=== PATIENT | female | born 1955 ===

== ENCOUNTER 2019-05-27 15:05 | Outpatient (CLI) | payer MEDICARE, OTHER ==
[2019-05-27] MEDS ORDERED: Sodium Chloride 0.9% 15 ML NEB ONE (16:36)
[2019-05-27] MEDS ORDERED: Lidocaine 2% PF 100 mg/5 ml Syringe ONE (16:36)
--- NOTE | 2019-05-27 23:28 | HP ---
HISTORY OF PRESENT ILLNESS: Ms. Krystal Howard is a very pleasant 63-year-old, who presents to the [facility] for evaluation of an ulceration of the left anterior lower leg. The patient states that the ulceration of her left anterior lower leg developed subsequent to a staphylococcal infection in November of this year. The patient states that she has been treated for the ulceration at a [facility] in [place], [place]. She states that treatment for her ulceration included debridement as well as antibiotics. The patient states that at a followup visit with her primary care provider, Shira Gomez RN, FOLDING MACHINE OPERATOR, she was referred to the [facility] for further evaluation and treatment. The patient today reports an allergy to Medihoney. PAST MEDICAL HISTORY: 1. COPD. 2. Congestive heart failure. 3. Obstructive sleep apnea. 4. History of hypertension. PAST SURGICAL HISTORY: 1. Cholecystectomy. 2. Left knee surgery x4. 3. Tonsillectomy. MEDICATIONS: 1. Celecoxib. 2. Aspirin 325 mg. 3. Spiriva. 4. Biotin. 5. Vitamin C. 6. Multivitamin. 7. Cephalexin. 8. Tramadol. ALLERGIES: ARIPIPRAZOLE, BUPROPION, CODEINE, MALTODEXTRIN. SOCIAL HISTORY: Social history is significant for tobacco use of up to [id number]-half packs of cigarettes per day for 35 years. The patient admits to the heavy consumption of alcohol in the past. FAMILY HISTORY: Family history is significant for coronary artery disease. The patient states that her mother and father were both diagnosed with coronary artery disease. Family history is also significant for diabetes mellitus. The patient states that a grandfather and uncle and aunt were all diagnosed with diabetes mellitus. PHYSICAL EXAMINATION: VITAL SIGNS: Temperature 97.7, pulse 72, respirations 25, blood pressure 145/69. GENERAL: A 63-year-old female, lying on table in examination room, in no acute distress. HEENT: Normocephalic, atraumatic. NECK: No nuchal rigidity. CHEST: Clear to auscultation. CARDIOVASCULAR: Regular rate and rhythm. ABDOMEN: Soft. EXTREMITIES: An ulceration of the left anterior lower leg is present, which measures approximately 2.7 x 3.8 cm. Granulation tissue is visible within the wound margins. No purulent drainage is associated with the wound. Erythema of the skin surrounding the wound is present, which appears to be secondary to stasis changes versus resolving cellulitis. No maceration of the skin of the periwound is noted. A posterior tibial pulse is easily palpable on the left. [id number] edema of the left foot and lower leg is present on exam today. NEUROLOGIC: Grossly nonfocal. ASSESSMENT AND PLAN: 1. Chronic venous hypertension with ulcer and inflammation. Dressing changes of Hydrofera Blue will be initiated today. These dressing changes are to be performed 3 times per week after cleansing and irrigation with the assistance of Home Health. Kerlix and Amilcar bandage will be utilized as secondary dressings. The patient has been reminded to continue Keflex as previously prescribed. I will see Ms. Howard again in 2 to 4 weeks. The patient understands and is in agreement with the preceding treatment plan. At the time of the patient's followup visit, if the dimensions of the wound have failed to decrease significantly, consideration will be given to treatment with Santyl. 2. Chronic obstructive pulmonary disease. 3. Congestive heart failure. 4. Obstructive sleep apnea. 5. History of hypertension. Job ID: [id number]
== END 2019-05-27 15:06 | disposition home or self-care (01) ==
LOC: WCC 15:05
PROVIDERS: ATTEND Family Medicine
DX: I87.332 Chronic venous hypertension (idiopathic) with ulcer and inflammation of left lower extremity (principal); L97.929 Non-pressure chronic ulcer of unspecified part of left lower leg with unspecified severity; I11.0 Hypertensive heart disease with heart failure; I50.9 Heart failure, unspecified; G47.33 Obstructive sleep apnea (adult) (pediatric); J44.9 Chronic obstructive pulmonary disease, unspecified
CPT/HCPCS: 97602; 99203; A4218; G0463; J2001

== ENCOUNTER 2019-06-24 11:20 | Outpatient (CLI) | payer MEDICARE, OTHER ==
--- NOTE | 2019-06-24 11:36 | PRG ---
DATE OF SERVICE: 06/24/2019 HISTORY: Ms. Krystal Howard is a very pleasant 63-year-old, who presents to the wound center for evaluation of an ulceration of the left anterior lower leg. The patient previously stated that the ulceration of her left anterior lower leg developed subsequent to a staphylococcal infection in November of this year. The patient stated previously that she had been treated for the ulceration at a wound care center in [place], [place]. She stated that treatment for her ulceration included debridement as well as antibiotics. The patient stated that at a followup visit with her primary care provider, Shira Gomez RN, AUTOMATIC COIL MACHINE OPERATOR, she was referred to the [facility] for further evaluation and treatment. At the time of the patient's initial presentation to the wound center, the patient reported an allergy to Medihoney. After being seen in the wound center, dressing changes of Hydrofera BLUE were initiated. These dressing changes have been performed 3 times per week after cleansing and irrigation with the assistance of Home Health. PHYSICAL EXAMINATION: VITAL SIGNS: Temperature 98.5, pulse90, respirations 24, blood pressure 184/77. EXTREMITIES: An ulceration of the left anterior lower leg is present, which measures approximately 3.5 x 2.2 cm. The dimensions of the wound at the time of the patient's visit on 05/27/2019 were approximately 2.7 x 3.8 cm. Granulation tissue is present within the wound margins. No purulent drainage is associated with the wound. Erythema of the skin surrounding the wound is present, which appears to be secondary to stasis changes. No maceration of the skin of the periwound is noted. A posterior tibial pulse is easily palpable on the left. No significant edema of the left foot or lower leg is present on exam today. ASSESSMENT AND PLAN: 1. Chronic venous hypertension with ulcer and inflammation. Dressing changes of Hydrofera BLUE will be continued 3 times per week after cleansing and irrigation with the assistance of Home Health. I will see Ms. Howard again in 4 weeks. 2. Chronic obstructive pulmonary disease. 3. Congestive heart failure. 4. Obstructive sleep apnea. 5. Hypertension. Job ID: [id number]
[2019-06-24] MEDS ORDERED: Sodium Chloride 0.9% 15 ML NEB ONE (15:00)
[2019-06-24] MEDS ORDERED: Lidocaine 2% PF 100 mg/5 ml Syringe ONE (15:00)
== END 2019-06-24 11:21 | disposition home or self-care (01) ==
LOC: WCC 11:20
PROVIDERS: ATTEND Family Medicine
DX: I87.332 Chronic venous hypertension (idiopathic) with ulcer and inflammation of left lower extremity (principal); B95.8 Unspecified staphylococcus as the cause of diseases classified elsewhere; I11.0 Hypertensive heart disease with heart failure; I50.9 Heart failure, unspecified; J44.9 Chronic obstructive pulmonary disease, unspecified; G47.33 Obstructive sleep apnea (adult) (pediatric)
CPT/HCPCS: 97602

== ENCOUNTER 2019-07-22 10:07 | Outpatient (CLI) | payer MEDICARE, OTHER ==
--- NOTE | 2019-07-22 11:00 | PRG ---
DATE OF SERVICE: 07/22/2019 HISTORY: Ms. Krystal Howard is a very pleasant 63-year-old who presents to the Wound Center for evaluation of an ulceration of the left anterior lower leg. The patient previously stated that the ulceration of her left anterior lower leg developed subsequent to a staphylococcal infection in November of this year. The patient previously stated that she had been treated for the ulceration at the Wound Care Center in [place], [place]. She stated that treatment for her ulceration included debridement as well as antibiotics. The patient stated that at a followup visit with her primary care provider, Shira Gomez RN, INSIDE SALES REPRESENTATIVE, she was referred to the [facility] for further evaluation and treatment. At the time of the patient's initial presentation to the Wound Center, the patient reported an allergy to Medihoney. After being seen in the Wound Center, dressing changes of Hydrofera BLUE were initiated. These dressing changes have been performed 3 times per week after cleansing and irrigation with the assistance of Home Health. PHYSICAL EXAMINATION: VITAL SIGNS: Temperature 99.0, pulse 87, respirations 24, blood pressure 159/71. EXTREMITIES: An ulceration of the left anterior lower leg is present, which measures approximately 2.0 x 1.7 cm. The dimensions of the wound at the time of the patient's visit on 06/24/2019 were approximately 3.5 x 2.2 cm. Granulation tissue is present within the wound margins. No purulent drainage is associated with the wound. Erythema of the skin surrounding the wound is present, which appears to be secondary to stasis changes. No maceration of the skin of the periwound is noted. No significant edema of the left foot or lower leg is appreciated on exam today. ASSESSMENT AND PLAN: 1. Chronic venous hypertension with ulcer and inflammation. Dressing changes of Hydrofera BLUE will be continued 3 times per week after cleansing and irrigation with the assistance of Home Health. I have asked the patient to return to clinic in 4 weeks. 2. Chronic obstructive pulmonary disease. 3. Congestive heart failure. 4. Obstructive sleep apnea. 5. Hypertension. Job ID: [id number]
[2019-07-22] MEDS ORDERED: Sodium Chloride 0.9% 15 ML NEB ONE (15:19)
== END 2019-07-22 10:08 | disposition home or self-care (01) ==
LOC: WCC 10:07
PROVIDERS: ATTEND Family Medicine
DX: I87.332 Chronic venous hypertension (idiopathic) with ulcer and inflammation of left lower extremity (principal); L97.929 Non-pressure chronic ulcer of unspecified part of left lower leg with unspecified severity; J44.9 Chronic obstructive pulmonary disease, unspecified; G47.33 Obstructive sleep apnea (adult) (pediatric); I11.0 Hypertensive heart disease with heart failure
CPT/HCPCS: A4218

== ENCOUNTER 2021-09-20 15:59 | Inpatient (IN) | payer MEDICARE, OTHER ==
[2021-09-20 16:15] LABS: #Eosinphils 0.3 thou/uL (0.0-0.7); #Lymphocytes 0.5 thou/uL (1.20-3.40); #Monocytes 0.9 thou/uL (0.11-0.59); #Neutrophils 7.2 thou/uL (1.40-6.50); %Basophils 0.3 % (0.0-1.0); %Eosinophils 3.2 % (0.0-10.0); %Lymphocytes 5.8 % (21.0-51.0); %Monocytes 10.5 % (0.0-10.0); %Neutrophils 80.2 % (42.0-75.0); Hemoglobin 14.5 g/dL (12.0-16.0); Mean Corpuscular HGB CONC 31.9 g/dL (32.0-36.0); Mean Corpuscular Hemoglobin 29.2 pg (27.0-31.0); Mean Corpuscular Volume 91.4 fL (78.0-98.0); Mean Platelet Volume 8.8 fL (7.4-10.4); Platelet Count 74 thou/uL (130-400); RBC Distribution Width 13.5 % (11.5-14.5); Red Blood Cell (RBC) Count 4.95 mill/uL (4.20-5.40); White Blood Cell (WBC) Count 8.9 thou/uL (4.8-10.8)
[2021-09-20 16:22] LABS: INR-International Normal Ratio 1.5; Prothrombin Time 18.1 sec (12.0-14.7)
[2021-09-20 16:25] LABS: PTT 59.9 sec (22.9-36.1)
[2021-09-20 16:28] LABS: Platelet Morphology Comment Appears Decreased; RBC Morphology Normal
[2021-09-20 16:36] LABS: ALT (SGPT) 51 U/L (8-55); AST (SGOT) 258 U/L (5-34); Albumin 3.4 g/dL (3.4-4.8); Alkaline Phosphatase 866 U/L (40-110); Anion Gap 22 mmol/L (10-20); BUN (Urea Nitrogen) 62 mg/dL (9.8-20.1); Bilirubin, Total 3.6 mg/dL (0.2-1.2); Calc. Creatinine Clearance 0 mL/min (70-130); Calcium 10.3 mg/dL (7.8-10.44); Carbon Dioxide 13 mmol/L (23-31); Chloride 99 mmol/L (98-107); Globulin 3.5 g/dL (2.4-3.5); Glucose 88 mg/dL (80-115); Potassium 5.4 mmol/L (3.5-5.1); Protein, Total 6.9 g/dL (5.8-8.1); Sodium 129 mmol/L (136-145)
[2021-09-20 18:20] LABS: Acetaminophen Less than 6.0 mcg/mL (10.0-30.0); Alcohol Less than 10 mg/dL (Less than 10); CK (CPK) 153 U/L (29-168); Salicylate Less than 8.0 mg/dL (15.0-30.0)
[2021-09-20] MEDS ORDERED: Bisacodyl 5 MG TAB PO PRN (19:45)
[2021-09-20] MEDS ORDERED: hydrALAZINE 20 MG/ML VIAL SLOW IVP PRN (19:47)
[2021-09-20 22:38] VITALS: BMI 37.5
[2021-09-20] MEDS: Heparin 5,000 UNITS/ML VIAL SC SCH (23:42)
[2021-09-20] MEDS: Famotidine 20 MG TAB PO SCH (23:43)
[2021-09-20] MEDS: Nicotine 14 MG PATCH TD SCH (23:46)
[2021-09-21 01:38] LABS: Protein, Urine Random Quant 53 mg/dL (1-14); Sodium, Urine Less than 20 mmol/L (Not Available); Urea Nitrogen, Random Urine 572 mg/dl
[2021-09-21] MEDS: Sodium Bicarbonate 150 MEQ in Dextrose 5% in Water 1,000 ML IV SCH ×2 (02:33→12:21)
[2021-09-21] MEDS: HYDROcodone/Acetaminophen 5/325 mg Tablet PO PRN ×2 (02:46→09:02)
[2021-09-21] MEDS: Ondansetron PF 4 MG/2 ML Vial IVP PRN ×2 (03:01→13:05)
[2021-09-21 05:35] LABS: ALT (SGPT) 52 U/L (8-55); AST (SGOT) 265 U/L (5-34); Alkaline Phosphatase 882 U/L (40-110); Anion Gap 20 mmol/L (10-20); BUN (Urea Nitrogen) 59 mg/dL (9.8-20.1); Bilirubin, Total 3.5 mg/dL (0.2-1.2); Calc. Creatinine Clearance 34 mL/min (70-130); Calcium 9.7 mg/dL (7.8-10.44); Carbon Dioxide 17 mmol/L (23-31); Chloride 98 mmol/L (98-107); Globulin 3.3 g/dL (2.4-3.5); Glucose 121 mg/dL (80-115); Potassium 4.7 mmol/L (3.5-5.1); Protein, Total 6.3 g/dL (5.8-8.1); Sodium 130 mmol/L (136-145)
[2021-09-21 06:52] LABS: #Eosinphils 0.3 thou/uL (0.0-0.7); #Lymphocytes 0.4 thou/uL (1.20-3.40); #Monocytes 0.7 thou/uL (0.11-0.59); #Neutrophils 5.6 thou/uL (1.40-6.50); %Basophils 0.4 % (0.0-1.0); %Eosinophils 4.4 % (0.0-10.0); %Lymphocytes 5.1 % (21.0-51.0); %Monocytes 10.5 % (0.0-10.0); %Neutrophils 79.6 % (42.0-75.0); Hemoglobin 13.2 g/dL (12.0-16.0); Mean Corpuscular HGB CONC 32.3 g/dL (32.0-36.0); Mean Corpuscular Hemoglobin 29.2 pg (27.0-31.0); Mean Corpuscular Volume 90.6 fL (78.0-98.0); Mean Platelet Volume 9.1 fL (7.4-10.4); Platelet Count 64 thou/uL (130-400); RBC Distribution Width 13.3 % (11.5-14.5); Red Blood Cell (RBC) Count 4.51 mill/uL (4.20-5.40); White Blood Cell (WBC) Count 7.1 thou/uL (4.8-10.8)
[2021-09-21] MEDS: Famotidine 20 MG TAB PO SCH (08:20)
[2021-09-21] MEDS: Heparin 5,000 UNITS/ML VIAL SC SCH (08:21)
[2021-09-21] MEDS: Zinc Sulfate 220 MG CAP PO SCH (09:04)
[2021-09-21 12:07] LABS: SARS-CoV-2 PCR by NAA DETECTED (NotDetected)
[2021-09-21] MEDS: Morphine 4 MG/ML VIAL SLOW IVP PRN (13:07)
[2021-09-21] MEDS ORDERED: Sodium Bicarbonate 150 MEQ in Dextrose 5% in Water 1,000 ML IV SCH (13:15)
[2021-09-21] MEDS ORDERED: Famotidine 20 MG TAB PO SCH (21:00)
[2021-09-21] MEDS: Albuterol 200 PUFF (6.7GM INHALER) INH SCH (21:42)
[2021-09-21] MEDS: Nicotine 14 MG PATCH TD SCH (21:42)
[2021-09-21] MEDS ORDERED: Sodium Chloride 0.9% 1,000 ML IV SCH (22:15)
[2021-09-22] MEDS ORDERED: Sodium Chloride 0.9% 1,000 ML IV SCH (00:30)
[2021-09-22] MEDS ORDERED: Midodrine HCl 5 MG TAB PO SCH ×2 (06:15→10:23)
[2021-09-22] MEDS: Albuterol 200 PUFF (6.7GM INHALER) INH SCH ×3 (08:00→18:55)
[2021-09-22] MEDS ORDERED: Norepinephrine 8 MG/0.9% NS 250 ML IVPB SCH (10:15)
[2021-09-22] MEDS ORDERED: Albumin 25% 25 GM/100 ML BOT IVPB SCH (10:27)
[2021-09-22] MEDS ORDERED: Albumin 25% 100 ML ONE ×2 (10:28→10:30)
[2021-09-22 11:03] LABS: Base Excess (BEa) 4.4 mEq/L (-2.0 to +3.0); CO2 Tension 55.3 mmHg (35.0-45.0); Calcium, Ionized (arterial) 1.04 mmol/L (1.12-1.30); Carboxyhemoglobin (COHb) 0.6 gm% (0.0-3.0); Hemoglobin (Hb) 13.3 g/dL (12.0-16.0); Potassium - ABG Lab 4.57 mmol/L (3.70-5.30); pH, Arterial 7.37 (7.35-7.45)
[2021-09-22 11:23] LABS: O2 Tension (PaO2), arterial 32.1 mmHg (> 80.0)
[2021-09-22 11:24] LABS: ALV-art Gradient 98.415 mmHg (0-20); Puncture Site RBA
[2021-09-22] MEDS: Famotidine 20 MG TAB PO SCH (11:30)
[2021-09-22] MEDS: Zinc Sulfate 220 MG CAP PO SCH (11:31)
[2021-09-22 11:48] LABS: Hemoglobin 12.5 g/dL (12.0-16.0); Mean Corpuscular HGB CONC 33.3 g/dL (32.0-36.0); Mean Corpuscular Hemoglobin 30.5 pg (27.0-31.0); Mean Corpuscular Volume 91.5 fL (78.0-98.0); Platelet Count 61 thou/uL (130-400); RBC Distribution Width 13.5 % (11.5-14.5); White Blood Cell (WBC) Count 6.2 thou/uL (4.8-10.8)
[2021-09-22 12:16] LABS: Phosphorus 3.7 mg/dL (2.3-4.7)
[2021-09-22 12:19] LABS: ALT (SGPT) 154 U/L (8-55); AST (SGOT) 1243 U/L (5-34); Albumin 3.4 g/dL (3.4-4.8); Alkaline Phosphatase 930 U/L (40-110); Anion Gap 24 mmol/L (10-20); BUN (Urea Nitrogen) 61 mg/dL (9.8-20.1); Bilirubin, Total 3.3 mg/dL (0.2-1.2); Calc. Creatinine Clearance 26 mL/min (70-130); Calcium 8.3 mg/dL (7.8-10.44); Carbon Dioxide 22 mmol/L (23-31); Chloride 91 mmol/L (98-107); Globulin 2.7 g/dL (2.4-3.5); Glucose 88 mg/dL (80-115); Magnesium 1.7 mg/dL (1.6-2.6); Potassium 4.7 mmol/L (3.5-5.1); Protein, Total 6.1 g/dL (5.8-8.1); Sodium 132 mmol/L (136-145)
[2021-09-22] MEDS ORDERED: Sodium Chloride 0.9% 500 ML IV SCH (13:30)
[2021-09-22] MEDS: Albumin 25% 25 GM/100 ML BOT IVPB SCH ×3 (14:27→23:39)
[2021-09-22] MEDS: Midodrine HCl 5 MG TAB PO SCH ×2 (14:27→19:44)
[2021-09-22] MEDS: Norepinephrine 8 MG/0.9% NS 250 ML IVPB SCH (15:36)
[2021-09-22] MEDS ORDERED: Acetaminophen 650 MG Suppository PR SCH (21:30)
[2021-09-22] MEDS: Ondansetron PF 4 MG/2 ML Vial IVP PRN (21:47)
[2021-09-22] MEDS: Nicotine 14 MG PATCH TD SCH (22:02)
[2021-09-23] MEDS: Morphine 4 MG/ML VIAL SLOW IVP PRN ×3 (03:49→13:57)
[2021-09-23] MEDS: Ondansetron PF 4 MG/2 ML Vial IVP PRN ×2 (03:50→13:57)
[2021-09-23 04:39] LABS: ALT (SGPT) 149 U/L (8-55); AST (SGOT) 1255 U/L (5-34); Albumin 3.5 g/dL (3.4-4.8); Alkaline Phosphatase 774 U/L (40-110); Anion Gap 15 mmol/L (10-20); BUN (Urea Nitrogen) 63 mg/dL (9.8-20.1); Bilirubin, Total 4.4 mg/dL (0.2-1.2); Calc. Creatinine Clearance 22 mL/min (70-130); Calcium 8.3 mg/dL (7.8-10.44); Carbon Dioxide 30 mmol/L (23-31); Chloride 93 mmol/L (98-107); Globulin 2.4 g/dL (2.4-3.5); Glucose 76 mg/dL (80-115); Hemoglobin 11.3 g/dL (12.0-16.0); Mean Corpuscular HGB CONC 32.5 g/dL (32.0-36.0); Mean Corpuscular Hemoglobin 29.9 pg (27.0-31.0); Mean Corpuscular Volume 92.1 fL (78.0-98.0); Mean Platelet Volume 9.6 fL (7.4-10.4); Platelet Count 80 thou/uL (130-400); Potassium 4.4 mmol/L (3.5-5.1); Protein, Total 5.9 g/dL (5.8-8.1); RBC Distribution Width 13.5 % (11.5-14.5); Red Blood Cell (RBC) Count 3.78 mill/uL (4.20-5.40); Sodium 134 mmol/L (136-145); White Blood Cell (WBC) Count 7.3 thou/uL (4.8-10.8)
[2021-09-23 04:48] LABS: Free T4 (Free Thyroxine) 1.31 ng/dL (0.70-1.48)
[2021-09-23] MEDS: Albumin 25% 25 GM/100 ML BOT IVPB SCH ×3 (06:19→13:59)
[2021-09-23] MEDS: Midodrine HCl 5 MG TAB PO SCH ×4 (06:20→20:08)
[2021-09-23] MEDS: Albuterol 200 PUFF (6.7GM INHALER) INH SCH ×3 (08:05→19:18)
[2021-09-23] MEDS: Zinc Sulfate 220 MG CAP PO SCH (09:46)
[2021-09-23] MEDS: Famotidine 20 MG TAB PO SCH (09:46)
[2021-09-23] MEDS: Sodium Chloride 0.9% 1,000 ML IV SCH ×2 (11:55→20:05)
[2021-09-23] MEDS ORDERED: Hydrocortisone Sod Succ/PF 250 mg/2 ml Vial SLOW IVP SCH (13:51)
[2021-09-23] MEDS: Nystatin Powder 15 GM BOT TOP SCH (20:06)
[2021-09-23] MEDS: Nicotine 14 MG PATCH TD SCH (20:06)
[2021-09-23] MEDS: Norepinephrine 8 MG/0.9% NS 250 ML IVPB SCH (20:56)
[2021-09-24] MEDS: Midodrine HCl 5 MG TAB PO SCH ×3 (05:51→20:49)
[2021-09-24] MEDS: Sodium Chloride 0.9% 1,000 ML IV SCH (05:51)
[2021-09-24 07:04] LABS: Hemoglobin 12.4 g/dL (12.0-16.0); Mean Corpuscular HGB CONC 31.5 g/dL (32.0-36.0); Mean Corpuscular Hemoglobin 29.7 pg (27.0-31.0); Mean Corpuscular Volume 94.3 fL (78.0-98.0); Mean Platelet Volume 7.9 fL (7.4-10.4); Platelet Count 99 thou/uL (130-400); RBC Distribution Width 14.1 % (11.5-14.5); Red Blood Cell (RBC) Count 4.16 mill/uL (4.20-5.40); White Blood Cell (WBC) Count 14.2 thou/uL (4.8-10.8)
[2021-09-24] MEDS: Albuterol 200 PUFF (6.7GM INHALER) INH SCH ×3 (08:09→20:51)
[2021-09-24 08:41] LABS: Albumin 3.5 g/dL (3.4-4.8)
[2021-09-24 08:42] LABS: Chloride 96 mmol/L (98-107); Potassium 5.1 mmol/L (3.5-5.1); Sodium 135 mmol/L (136-145)
[2021-09-24 08:43] LABS: Calcium 8.3 mg/dL (7.8-10.44); Globulin 2.5 g/dL (2.4-3.5); Glucose 99 mg/dL (80-115)
[2021-09-24 08:45] LABS: Anion Gap 31 mmol/L (10-20); Bilirubin, Total 4.4 mg/dL (0.2-1.2); Carbon Dioxide 13 mmol/L (23-31)
[2021-09-24 08:46] LABS: Alkaline Phosphatase 863 U/L (40-110)
[2021-09-24 08:47] LABS: BUN (Urea Nitrogen) 71 mg/dL (9.8-20.1); Calc. Creatinine Clearance 18 mL/min (70-130)
[2021-09-24 08:48] LABS: AST (SGOT) 1470 U/L (5-34)
[2021-09-24 08:49] LABS: ALT (SGPT) 181 U/L (8-55)
[2021-09-24] MEDS: Norepinephrine 8 MG/0.9% NS 250 ML IVPB SCH ×2 (10:08→20:49)
[2021-09-24] MEDS: Famotidine 20 MG TAB PO SCH (10:08)
[2021-09-24] MEDS: Zinc Sulfate 220 MG CAP PO SCH (10:08)
[2021-09-24] MEDS: Nystatin Powder 15 GM BOT TOP SCH ×2 (10:09→20:52)
[2021-09-24] MEDS: methylPREDNISolone Sod Succ 40 MG VIAL IVP SCH ×2 (14:13→18:19)
[2021-09-24] MEDS: Sodium Bicarbonate 150 MEQ in Dextrose 5% in Water 1,000 ML IV SCH (14:13)
[2021-09-24 15:40] LABS: Actual Bicarbonate (HCO3a) 19.2 mEq/L (22-28); Base Excess (BEa) 6.7 mEq/L (-2.0 to +3.0); CO2 Tension 39.6 mmHg (35.0-45.0); Carboxyhemoglobin (COHb) 0.6 gm% (0.0-3.0); Hemoglobin (Hb) 12.5 g/dL (12.0-16.0); O2 Tension (PaO2), arterial 83.8 mmHg (> 80.0)
[2021-09-24 15:41] LABS: Analyzer IN Cardio OR; Calcium, Ionized (arterial) 1.05 mmol/L (1.12-1.30); Potassium - ABG Lab 4.73 mmol/L (3.70-5.30); Puncture Site RRA
[2021-09-24] MEDS: Nicotine 14 MG PATCH TD SCH (20:51)
[2021-09-25] MEDS: methylPREDNISolone Sod Succ 40 MG VIAL IVP SCH ×4 (00:58→19:11)
[2021-09-25] MEDS: Sodium Bicarbonate 150 MEQ in Dextrose 5% in Water 1,000 ML IV SCH ×2 (02:11→14:38)
[2021-09-25] MEDS: Midodrine HCl 5 MG TAB PO SCH ×3 (05:11→21:38)
[2021-09-25 05:48] LABS: Mean Corpuscular HGB CONC 32.8 g/dL (32.0-36.0); Mean Corpuscular Hemoglobin 29.9 pg (27.0-31.0); Mean Corpuscular Volume 90.9 fL (78.0-98.0); Mean Platelet Volume 8.2 fL (7.4-10.4); Platelet Count 86 thou/uL (130-400); RBC Distribution Width 14.3 % (11.5-14.5); Red Blood Cell (RBC) Count 4.36 mill/uL (4.20-5.40); White Blood Cell (WBC) Count 17.4 thou/uL (4.8-10.8)
[2021-09-25 06:42] LABS: ALT (SGPT) 151 U/L (8-55); AST (SGOT) 830 U/L (5-34); Albumin 3.3 g/dL (3.4-4.8); Alkaline Phosphatase 915 U/L (40-110); Anion Gap 22 mmol/L (10-20); BUN (Urea Nitrogen) 87 mg/dL (9.8-20.1); Bilirubin, Total 3.4 mg/dL (0.2-1.2); Calc. Creatinine Clearance 19 mL/min (70-130); Calcium 8.2 mg/dL (7.8-10.44); Carbon Dioxide 26 mmol/L (23-31); Chloride 96 mmol/L (98-107); Globulin 2.9 g/dL (2.4-3.5); Glucose 182 mg/dL (80-115); Potassium 4.8 mmol/L (3.5-5.1); Protein, Total 6.2 g/dL (5.8-8.1); Sodium 139 mmol/L (136-145)
[2021-09-25] MEDS: Famotidine 20 MG TAB PO SCH (09:22)
[2021-09-25] MEDS: Zinc Sulfate 220 MG CAP PO SCH (09:22)
[2021-09-25] MEDS: Nystatin Powder 15 GM BOT TOP SCH ×2 (13:05→21:34)
[2021-09-25] MEDS: Nicotine 14 MG PATCH TD SCH (21:34)
[2021-09-25] MEDS: Albuterol 200 PUFF (6.7GM INHALER) INH SCH ×2 (21:37→21:38)
[2021-09-26] MEDS: methylPREDNISolone Sod Succ 40 MG VIAL IVP SCH ×4 (00:36→14:31)
[2021-09-26] MEDS: Morphine 4 MG/ML VIAL SLOW IVP PRN ×5 (01:13→13:17)
[2021-09-26] MEDS: Sodium Bicarbonate 150 MEQ in Dextrose 5% in Water 1,000 ML IV SCH (01:13)
[2021-09-26 05:57] LABS: ALT (SGPT) 113 U/L (8-55); AST (SGOT) 413 U/L (5-34); Alkaline Phosphatase 933 U/L (40-110); Anion Gap 14 mmol/L (10-20); BUN (Urea Nitrogen) 81 mg/dL (9.8-20.1); Bilirubin, Total 3.5 mg/dL (0.2-1.2); Calc. Creatinine Clearance 24 mL/min (70-130); Carbon Dioxide 35 mmol/L (23-31); Chloride 94 mmol/L (98-107); Globulin 2.7 g/dL (2.4-3.5); Glucose 163 mg/dL (80-115); Magnesium 1.9 mg/dL (1.6-2.6); Potassium 4.2 mmol/L (3.5-5.1); Protein, Total 5.7 g/dL (5.8-8.1); Sodium 139 mmol/L (136-145)
[2021-09-26] MEDS: Midodrine HCl 5 MG TAB PO SCH (06:32)
[2021-09-26 06:36] LABS: Band 34 % (5-11); Hemoglobin 12.8 g/dL (12.0-16.0); Lymphocytes 2 % (21-51); MDiff Complete? YES; Mean Corpuscular HGB CONC 32.7 g/dL (32.0-36.0); Mean Corpuscular Hemoglobin 29.7 pg (27.0-31.0); Mean Corpuscular Volume 90.7 fL (78.0-98.0); Mean Platelet Volume 9.5 fL (7.4-10.4); Monocytes 8 % (0-10); Neutrophil 56 % (42-75); Platelet Count 51 thou/uL (130-400); Platelet Morphology Comment Appears Decreased; RBC Distribution Width 14.1 % (11.5-14.5); Red Blood Cell (RBC) Count 4.32 mill/uL (4.20-5.40)
[2021-09-26] MEDS: Albuterol 200 PUFF (6.7GM INHALER) INH SCH (06:54)
[2021-09-26] MEDS: Famotidine 20 MG TAB PO SCH (08:05)
[2021-09-26] MEDS: Nystatin Powder 15 GM BOT TOP SCH (08:25)
[2021-09-26] MEDS ORDERED: Sodium Bicarbonate 50 MEQ in Sodium Chloride 0.45% 1,000 ML IV SCH (09:15)
[2021-09-26] MEDS: Zinc Sulfate 220 MG CAP PO SCH (10:58)
[2021-09-26] MEDS ORDERED: Lorazepam 2 MG/ML VIAL SLOW IVP PRN (11:38)
[2021-09-26] MEDS: Lorazepam 2 MG/ML VIAL SLOW IVP PRN ×2 (15:23→18:32)
[2021-09-26] MEDS ORDERED: Scopolamine 1.5 mg/72 hour Patch TD SCH (16:00)
[2021-09-27 01:05] VITALS: BP 86/50; TEMP 98.8
[2021-09-27] MEDS: Morphine 4 MG/ML VIAL SLOW IVP PRN ×2 (01:35→03:37)
[2021-09-27] MEDS: Lorazepam 2 MG/ML VIAL SLOW IVP PRN ×2 (01:37→03:36)
[2021-09-27] MEDS ORDERED: Pantoprazole 40 MG VIAL IVP SCH (09:00)
== END 2021-09-27 03:51 | disposition expired | DRG 871 ==
LOC: ERS 15:59 → MSONC 19:33 → T4-A 09-21 17:21 → CCU 09-22 11:49 → T4-A 09-26 14:32
PROVIDERS: ADMIT Internal Medicine; ATTEND Family Medicine
PROC: 3E033XZ Introduction of Vasopressor into Peripheral Vein, Percutaneous Approach (ICD-10-PCS; principal; 2021-09-22)
PROC: 8E0ZXY6 Isolation (ICD-10-PCS; 2021-09-24)
DX: A41.89 Other specified sepsis (principal); N17.0 Acute kidney failure with tubular necrosis; U07.1 COVID-19; G93.41 Metabolic encephalopathy; R65.21 Severe sepsis with septic shock; E87.2 Acidosis; I50.32 Chronic diastolic (congestive) heart failure; C78.7 Secondary malignant neoplasm of liver and intrahepatic bile duct; C79.70 Secondary malignant neoplasm of unspecified adrenal gland; E87.1 Hypo-osmolality and hyponatremia; C77.2 Secondary and unspecified malignant neoplasm of intra-abdominal lymph nodes; R17 Unspecified jaundice; C79.31 Secondary malignant neoplasm of brain; E87.3 Alkalosis; E27.40 Unspecified adrenocortical insufficiency; Z66 Do not resuscitate; Z51.5 Encounter for palliative care; E87.5 Hyperkalemia; J44.9 Chronic obstructive pulmonary disease, unspecified; C76.2 Malignant neoplasm of abdomen; G47.33 Obstructive sleep apnea (adult) (pediatric); I11.0 Hypertensive heart disease with heart failure; E86.9 Volume depletion, unspecified; E86.0 Dehydration; B36.8 Other specified superficial mycoses; I08.1 Rheumatic disorders of both mitral and tricuspid valves; R79.89 Other specified abnormal findings of blood chemistry; R74.01 Elevation of levels of liver transaminase levels; R63.0 Anorexia; Z68.37 Body mass index [BMI] 37.0-37.9, adult; E87.6 Hypokalemia; R57.8 Other shock; Z90.49 Acquired absence of other specified parts of digestive tract; Z90.89 Acquired absence of other organs; Z98.890 Other specified postprocedural states; Z87.891 Personal history of nicotine dependence; Z88.5 Allergy status to narcotic agent; Z79.899 Other long term (current) drug therapy; Z79.82 Long term (current) use of aspirin; Z80.8 Family history of malignant neoplasm of other organs or systems
CPT/HCPCS: 36415; 36600; 70450; 71045; 80053; 80307; 82140; 82378; 82533; 82550; 82570; 82805; 83605; 83735; 83880; 84100; 84156; 84300; 84439; 84443; 84481; 84484; 84540; 85025; 85027; 85379; 85610; 85730; 86140; 86301; 93005; 93306; 94760; 96374; J1720; J2060; J2270; J2405; J2920; J7050; J7070; P9047; U0003; U0005